=== PATIENT | female | born 1960 | race Caucasian/White ===

== ENCOUNTER 2017-01-18 15:51 | Emergency (ER) | payer BC, OTHER ==
[2017-01-18 16:54] VITALS: BP 123/82
--- NOTE | 2017-01-18 17:29 | ED ---
Throat Pain/Nasal Congestion - HPI Summary HPI Summary: 56 yr old female with the complaint of right sided ear, and facial pain for 36 hours, intermittent, lasting at most 5 minutes, comes and goes. Throbbing in quality. Presently 0/10. She states she took motrin for this earlier. She states she has dental crowns on the right mandibular teeth, and has pain in this area for many months at times. She denies pain on chewing or touching face or teeth. Denies ringing in her ears. She denies facial numbness or weakness. denies fever, chills. She has not felt ill. The distribution of her pain when it comes is in the right jaw, and also seems to radiate to the right maxilla and the right forehead with some symptoms in the right platysma. - History of Current Complaint Chief Complaint: UCEar Time Seen by Provider: 01/18/17 16:57 - Allergies/Home Medications Allergies/Adverse Reactions: Allergies Allergy/AdvReac Type Severity Reaction Status Date / Time Penicillins Allergy Hives Verified 01/18/17 16:33 Aspirin AdvReac Abdominal Verified 01/18/17 16:33 Pain Home Medications: Home Medications Acetaminophen [Acetaminophen Extra Stren] 1,000 mg PO ONCE PRN 01/18/17 [ History Confirmed 01/18/17] Calcium 0.5 tab PO DAILY 01/18/17 [History Confirmed 01/18/17] Cetirizine* [ZyrTEC 10 MG TAB*] 10 mg PO DAILY 01/18/17 [History Confirmed 01/18] Cholecalciferol [D3-1000] 1,000 unit PO EVERY OTHER DAY 01/18/17 [History Confirmed 01/18/17] Cholecalciferol [Vitamin D3 Super Strength] 2,000 unit PO EVERY OTHER DAY [History Confirmed 01/18/17] Ibuprofen [Motrin Ib] 200 mg PO ONCE PRN 01/18/17 [History Confirmed 01/18/17] Vitamin B Complex CAP* [B Complex CAP*] 1 cap PO DAILY 01/18/17 [History Confirmed 01/18/17] PMH/Surg Hx/FS Hx/Imm Hx Previously Healthy: Yes - Surgical History Surgery Procedure, Year, and Place: Reduction Mammoplasty 1997. OVARIAN CYSTECTOMY. 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 Alcohol Use: Weekly Substance Use Type: Reports: None Smoking Status (MU): Former Smoker Length of Time of Smoking/Using Tobacco: 2 YRS Review of Systems Constitutional: Negative Positive: Other - dental and facial pain Negative: Rash Negative: Headache, Weakness, Paresthesia, Numbness, Slurred Speech All Other Systems Reviewed And Are Negative: Yes Physical Exam Triage Information Reviewed: Yes Vital Signs On Initial Exam: Initial Vitals Temp Pulse Resp BP Pulse Ox 98.4 F 71 12 123/82 100 01/18/17 16:22 01/18/17 16:22 01/18/17 16:22 01/18/17 16:22 01/18/17 16:22 Vital Signs Reviewed: Yes Appearance: Positive: Well-Appearing, No Pain Distress Skin: Positive: Warm, Skin Color Reflects Adequate Perfusion, Other - no rash Head/Face: Positive: Normal Head/Face Inspection. Negative: Temporal Artery Tenderness Eyes: Positive: EOMI ENT: Positive: Normal ENT inspection, Pharynx normal, TMs normal, Other - external canals normal with no rash or erythema. Negative: Pharyngeal erythema , Nasal congestion, Dental tenderness Dental: Negative: Percussion Tenderness @, Gross Decay/Caries @, Dental Fracture @, Abscess @, Cellulitis @, Cervical Lymphadenopathy Neck: Positive: Supple, Nontender, No Lymphadenopathy Respiratory/Lung Sounds: Positive: Clear to Auscultation, Breath Sounds Present Cardiovascular: Positive: RRR. Negative: Murmur Musculoskeletal: Positive: Strength/ROM Intact Neurological: Positive: Sensory/Motor Intact, Alert, Oriented to Person Place, Time, CN Intact II-III, Normal Gait, Speech Normal. Negative: Facial Droop Psychiatric: Positive: Normal Diagnostics - Vital Signs Vital Signs Temp Pulse Resp BP Pulse Ox 01/18/17 16:22 98.4 F 71 12 123/82 100 - Laboratory Lab Statement: Any lab studies that have been ordered have been reviewed, and results considered in the medical decision making process. EENT Course/Dx - Course Course Of Treatment: 56 yr old female with atypical facial pain that comes and goes for 36 hours. She appears comfortable. non focal neuro exam. She will return or go to the ER for any sustained or worsening symptoms. - Diagnoses Provider Diagnoses: Atypical facial pain Discharge - Discharge Plan Condition: Good Disposition: HOME Patient Education Materials: Atypical Facial Pain (ED) Referrals: Onesimo Bloom MD [Primary Care Provider] - 2 Days
== END 2017-01-18 17:32 | disposition home or self-care (01) ==
LOC: UCCORT 15:51
DX: G50.1 Atypical facial pain (principal)
CPT/HCPCS: 99201; G0463